=== PATIENT | female | born 1970 | race Caucasian/White ===

== ENCOUNTER → 2020-02-18 | Outpatient (CLI) | payer SELFPAY ==
[~2020-02-18] MED LIST: BACL10 PO; BISA5EC PO; Baclofen10 MG PO; CIPR500; CLON.5; Cleocin HCl300 MG PO; HYDACE5; HYDACE5 PO; IBUP800 PO; MAGCIT300 PO; METR250; Neurontin 100100 MG PO; Norco 5-325 Ta1 EACH PO; OXYACE5T PO; PARO30; SERT25; TRAZ50 PO
[2020-02-21 08:52] LABS: HPV 16 Negative (Negative); HPV 18 Negative (Negative); HPV OTHER HR TYPES Negative (Negative)
== END | disposition home or self-care (01) ==
LOC: LAB 11:51 → LAB SHORT 11:51
PROVIDERS: Student in an Organized Health Care Education/Training Program
DX: Z01.419 Encounter for gynecological examination (general) (routine) without abnormal findings (principal)
CPT/HCPCS: 87624; G0145

== ENCOUNTER → 2020-02-18 | Outpatient (CLI) | payer SELFPAY ==
[2020-02-20 03:08] LABS: CHLAMYDIA TRACHOMATIS, NAA Positive (Negative)
== END | disposition home or self-care (01) ==
LOC: LAB SHORT 09:51 → LAB EV 09:51
PROVIDERS: Student in an Organized Health Care Education/Training Program
DX: Z11.3 Encounter for screening for infections with a predominantly sexual mode of transmission (principal)
CPT/HCPCS: 87491; 87591

== ENCOUNTER → 2022-11-06 | Outpatient (CLI) | payer BC | END | disposition home or self-care (01) | LOC: LAB 17:43 → LAB SHORT 17:43 | DX: R30.0 Dysuria (principal) | CPT/HCPCS: 87077; 87086; 87186 ==

== ENCOUNTER → 2024-05-12 | Outpatient (CLI) | payer OTHER | END | disposition home or self-care (01) | LOC: LAB SHORT 08:01 → PLD 08:01 | DX: D49.2 Neoplasm of unspecified behavior of bone, soft tissue, and skin (principal) | CPT/HCPCS: 88305 ==